=== PATIENT | male | born 1980 | race Hispanic/Latino ===

== ENCOUNTER 2022-04-14 13:09 | Emergency (ER) | payer SELFPAY ==
[2022-04-14] MEDS ORDERED: PROPOFOL 20 ML ONE (14:07)
[2022-04-14] MEDS ORDERED: Ketorolac Tromethamine 30 MG/ML VIAL ONE (14:07)
[2022-04-14] MEDS ORDERED: HYDROmorphone 0.5 MG/0.5 ML SYRINGE ONE (14:09)
== END 2022-04-14 16:23 | disposition home or self-care (01) ==
LOC: ERS 13:09
DX: S52.042A Displaced fracture of coronoid process of left ulna, initial encounter for closed fracture (principal); S52.122A Displaced fracture of head of left radius, initial encounter for closed fracture; W11.XXXA Fall on and from ladder, initial encounter
CPT/HCPCS: 24655; 96374; 96375; 99152; J1170; J1885; J2704